=== PATIENT | female | born 1995 | race Hispanic/Latino ===

== ENCOUNTER 2018-08-11 19:22 | Emergency (ER) | payer OTHER ==
[2018-08-11 19:39] VITALS: BP 115/99; PULSE 93; RESP 18; TEMP 99.5; O2SAT 99
[2018-08-11] MEDS ORDERED: Sodium Chloride 0.9% 1,000 ML IV STA (19:41)
--- NOTE | 2018-08-11 21:05 | ED PDOC ---
HPI: Headache Time Seen by Provider: 08/11/18 20:26 Chief Complaint (Nursing): Headache Chief Complaint (Provider): Headache History Per: Patient History/Exam Limitations: no limitations Onset/Duration Of Symptoms: Hrs (5x hours), Gradual Current Symptoms Are (Timing): Still Present Severity: Moderate Additional Complaint(s): 23 year old female with a past medical history of migraines presents to the ED for an evaluation of a headache (worse than usual migraines) that started 5x hours prior to arrival, and gradually worsened. Patient reports having 1x episodes of vomiting. Patient describes the headache as diffuse throughout her head. Patient reports taking imitrex at home with no relief. Patient denies having fevers or chills. PMD: None provided. Past Medical History Reviewed: Historical Data, Nursing Documentation, Vital Signs Vital Signs: Last Vital Signs Temp 99.5 F 08/11/18 19:36 Pulse 93 H 08/11/18 19:36 Resp 18 08/11/18 19:36 BP 115/99 H 08/11/18 19:36 Pulse Ox 99 08/11/18 19:36 TONEY Report Viewed: Yes - Medical History PMH: Migraine - Family History Family History: States: No Known Family Hx - Social History Current smoker - smoking cessation education provided: No Alcohol: Occasional Drugs: Denies - Allergies Allergies/Adverse Reactions: Allergies Allergy/AdvReac Type Severity Reaction Status Date / Time No Known Allergies Allergy Verified 08/11/18 19:36 Review of Systems ROS Statement: Except As Marked, All Systems Reviewed And Found Negative Constitutional: Negative for: Fever, Chills Gastrointestinal: Positive for: Vomiting (1x episode) Neurological: Positive for: Headache (diffuse in head) Physical Exam - Reviewed Nursing Documentation Reviewed: Yes Vital Signs Reviewed: Yes - Physical Exam Appears: Positive for: Well, Non-toxic, No Acute Distress Head Exam: Positive for: ATRAUMATIC, NORMOCEPHALIC Skin: Positive for: Normal Color, Warm, Dry Eye Exam: Positive for: Normal appearance Cardiovascular/Chest: Positive for: Regular Rate, Rhythm Respiratory: Positive for: Normal Breath Sounds Neurologic/Psych: Positive for: Alert, Oriented (3x) - ECG O2 Sat by Pulse Oximetry: 99 (RA) Pulse Ox Interpretation: Normal Medical Decision Making Medical Decision Makin:26 Initial impression: 23 year old female with a headache Initial plan: * upreg * IVNS 1,000 ml IV 1,000 mls/hr * reglan 10 mg IVP * reevaluation 20:54 Upon reevaluation, patient states that her headache has improved to a mild lingering headache. toradol 15 mg IVP ordered Scribe Attestation: Documented byUzma Daniel, acting as a scribe for Dieudonne Causey PA-C. Provider Scribe Attestation: All medical record entries made by the Scribe were at my direction and personally dictated by me. I have reviewed the chart and agree that the record accurately reflects my personal performance of the history, physical exam, medical decision making, and the department course for this patient. I have also personally directed, reviewed, and agree with the discharge instructions and disposition. Disposition - Clinical Impression Clinical Impression: Migraine - Patient ED Disposition Is Patient to be Admitted: No - Disposition Disposition: Routine/Home Disposition Time: 21:08 Condition: FAIR Instructions: Migraine Headaches in Adults
== END 2018-08-11 21:08 | disposition home or self-care (01) ==
LOC: H.ER 19:22
DX: G43.909 Migraine, unspecified, not intractable, without status migrainosus (principal)
CPT/HCPCS: 81025; 96374; 96375; 99285; J1885; J2765; J7030